=== PATIENT | female | born 1995 | race Caucasian/White ===

== ENCOUNTER → 2018-12-26 | Outpatient (CLI) | payer OTHER ==
--- NOTE | 2018-12-26 15:19 | RAD ---
EXAM: Abdomen sonogram. HISTORY: Right upper quadrant pain. TECHNIQUE: Sonographic imaging of the abdomen was performed. COMPARISON: None. FINDINGS: The liver is normal in size. No focal hepatic lesion is seen. The common bile duct is normal in caliber. The gallbladder is unremarkable. The kidneys are unremarkable. The spleen is normal in size. The pancreas, aorta and inferior vena cava are unremarkable. There is no free fluid. IMPRESSION: Unremarkable abdomen sonogram. Electronically signed by: Cori Renner MD (12/26/2018 3:15 PM) [id number]
== END | disposition home or self-care (01) ==
LOC: US 14:14
PROVIDERS: ATTEND Registered Nurse
DX: R10.11 Right upper quadrant pain (principal)
CPT/HCPCS: 76700

== ENCOUNTER 2019-01-06 09:16 | Emergency (ER) | payer OTHER ==
[2019-01-06 09:39] VITALS: BP 134/81
[2019-01-06] MEDS ORDERED: EMTR1TAB8 PO (10:06)
[2019-01-06] MEDS ORDERED: RALT400T PO (10:06)
--- NOTE | 2019-01-06 10:06 | PHYS DOC ---
Past History Past Medical History: No Pertinent History Past Surgical History: Tonsillectomy Smoking: Cigarettes Alcohol Use: None Drug Use: None Adult General Chief Complaint Chief Complaint: OTHER COMPLAINTS HPI HPI Patient is a 23-year-old female presents after getting a body fluid splash in her left eye yesterday. 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 A droplet of material struck her eye. The droplet was not grossly bloody. The eye was irrigated after the splash. No change in vision. Patient reports discussing HIV status with the patient as well as looking at his medical records. Patient reports there was no HIV test within the patient's chart, but on discussion with the patient that she was working on he reported adding a negative HIV test performed 2 years ago.[] Review of Systems Review of Systems Constitutional: Denies fever or chills [] Eyes: See history of present illness Denies change in visual acuity, redness, or eye pain [] HENT: Denies nasal congestion or sore throat [] Respiratory: Denies cough or shortness of breath [] Cardiovascular: No chest pain or palpitations[] GI: Denies abdominal pain, nausea, vomiting, bloody stools or diarrhea [] : Denies dysuria or hematuria [] Musculoskeletal: Denies back pain or joint pain [] Integument: Denies rash or skin lesions [] Neurologic: Denies headache, focal weakness or sensory changes [] Endocrine: Denies polyuria or polydipsia [] All other systems were reviewed and found to be within normal limits, except as documented in this note. Allergies Allergies Allergies Coded Allergies Type Severity Reaction Last Updated Verified Penicillins Allergy Unknown 01/06/19 Yes ibuprofen Allergy Unknown 01/06/19 Yes Physical Exam Physical Exam Constitutional: Well developed, well nourished, no acute distress, non-toxic appearance. [] HENT: Normocephalic, atraumatic, bilateral external ears normal, oropharynx moist, no oral exudates, nose normal. [] Eyes: PERRLA, EOMI, conjunctiva normal, no discharge. Fundus is normal, anterior chamber is clear[] Neck: Normal range of motion, no tenderness, supple, no stridor. [] Cardiovascular:Heart rate regular rhythm, no murmur [] Lungs & Thorax: Bilateral breath sounds clear to auscultation [] Abdomen: Not examined. [] Skin: Warm, dry, no erythema, no rash. [] Back: No tenderness, no CVA tenderness. [] Extremities: No tenderness, no cyanosis, no clubbing, ROM intact, no edema. [] Neurologic: Alert and oriented X 3, normal motor function, normal sensory function, no focal deficits noted. [] Psychologic: Affect normal, judgement normal, mood normal. [] Current Patient Data Vital Signs Vital Signs Date Time Temp Pulse Resp B/P (MAP) Pulse Ox O2 Delivery O2 Flow Rate FiO2 01/06/19 09:39 96 18 100 Room Air EKG EKG [] Radiology/Procedures Radiology/Procedures [] Course & Med Decision Making Course & Med Decision Making Pertinent Labs and Imaging studies reviewed. (See chart for details) ED course: Patient arrived, was placed in bed, and tolerated exam well. Baseline laboratory testing was obtained. Discussed findings and plan and options with patient. Given that the source code is unknown but more than likely negative given a relatively recent HIV test, and small amount of material, options to include postexposure prophylaxis, and no treatment along with risks and benefits of both of these were discussed with patient. At this time patient defers postexposure prophylaxis. Discussed with patient that she has to 72 hours from time of exposure to start the medication. Providing a prescription if she chooses to change her mind in the interim. Medical decision making: Patient with a splash to the eye. There is no evidence of an acute eye injury. HIV prophylaxis prescription is being provided to the patient even though she deferred treatment in the emergency department.[] Dragon Disclaimer Dragon Disclaimer This electronic medical record was generated, in whole or in part, using a voice recognition dictation system. Departure Departure: Impression: Primary Impression: Exposure to blood or body fluid Disposition: HOME, SELF-CARE Condition: IMPROVED Referrals: [facility] [facility] (PCP) Patient Instructions: Body Fluid Exposure Additional Instructions: Follow-up with your regular doctor or worker's compensation physician in 2 days. You have up to 72 hours to start postexposure prophylaxis medicines if you choose. Return to the ER if change in vision, fever of more than 101, or any other concerns. Scripts Emtricitabine/Tenofovir (TRUVADA 200 MG-300 MG TABLET) 1 Each Tablet 1 TAB PO DAILY for PEP for 30 Days, #30 TAB 0 Refills Prov: KARLA CALDERA DO 01/06/19 Raltegravir Potassium (ISENTRESS) 400 Mg Tablet 1 TAB PO BID for PEP, #60 TAB 0 Refills Prov: KARLA CALDERA DO 01/06/19 KARLA CALDERA DO Jan 06, 2019 10:06
== END 2019-01-06 10:21 | disposition home or self-care (01) ==
LOC: ER 09:16
DX: Z77.21 Contact with and (suspected) exposure to potentially hazardous body fluids (principal); F17.210 Nicotine dependence, cigarettes, uncomplicated; Z88.0 Allergy status to penicillin; Z88.6 Allergy status to analgesic agent
CPT/HCPCS: 86703; 86705; 86709; 86803; 87340; 99284

== ENCOUNTER → 2021-02-22 | Outpatient (CLI) | payer OTHER ==
[~2021-02-22] MED LIST: EMTR1TAB8 PO; RALT400T PO
--- NOTE | 2021-02-22 12:14 | RAD ---
EXAM: Right foot, 3 views. HISTORY: Pain. COMPARISON: None. FINDINGS: 3 views of the right foot are obtained. There is no fracture, dislocation or subluxation. T he alignment and joint spaces are unremarkable. IMPRESSION: No acute osseous finding. Electronically signed by: Cori Renner MD (02/22/2021 12:12 PM) [id number]
== END ==
LOC: RAD 10:38
PROVIDERS: ATTEND Podiatrist
DX: M79.671 Pain in right foot (principal)
CPT/HCPCS: 73630

== ENCOUNTER → 2021-05-21 | Outpatient (CLI) | payer OTHER ==
--- NOTE | 2021-05-21 13:14 | RAD ---
INDICATION: Reason: Congestion, drainage. / Spl. Instructions: / History: . COMPARISON: None. TECHNIQUE: Axial CT images obtained through the paranasal sinuses. One or more of the following individualized dose reduction techniques were utilized for this examinat ion: 1. Automated exposure control; 2. Adjustment of the mA and/or kV according to patient size; 3 . Use of iterative reconstruction technique. FINDINGS: Maxillary sinuses are well aerated. Frontal sinus, sphenoid sinus and ethmoid air cells are well aerated. No retro-orbital fluid collection. No acute fracture IMPRESSION: * Paranasal sinuses are well aerated. Electronically signed by: Manny Dailey MD (05/21/2021 1:12 PM) [id number]
== END ==
LOC: CT 11:17
PROVIDERS: ATTEND Otolaryngology
DX: J32.9 Chronic sinusitis, unspecified (principal)
CPT/HCPCS: 70486